=== PATIENT | female | born 1965 | race American Indian/Alaskan Native ===

== ENCOUNTER 2017-12-03 12:07 | Emergency (ER) | payer OTHER ==
[2017-12-03] MEDS ORDERED: MOTRIN PO ONE (12:37)
[2017-12-03] MEDS ORDERED: CATAPRES PO ONE (12:37)
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
--- NOTE | 2017-12-03 14:05 | XRay Report ---
LEFT FEMUR: HISTORY: pain AP and lateral views of the femur demonstrate normal mineralization and contours for this patient's age. No destructive changes are noted and the adjacent soft tissues are normal. IMPRESSION: Normal left femur.
[2017-12-03 14:38] VITALS: BP 169/96
--- NOTE | 2017-12-03 15:17 | Cat Scan Report ---
FINAL REPORT EXAM: CT HEAD/BRAIN WO CON HISTORY: headache COMPARISON: None. TECHNIQUE: Multiple contiguous axial images were obtained from the skullbase the vertex without administration of IV contrast. FINDINGS: Brain volume is normal for age. No hemorrhage, mass, mass effect, or midline shift. Ventricles are not enlarged. Normal basal cisterns. No pathologic extra-axial fluid collection. No evidence of acute infarct. No skull fracture. Paranasal sinuses and mastoid air cells are clear. Bilateral orbits are grossly intact. IMPRESSION: No acute intracranial abnormality.
--- NOTE | 2017-12-03 15:23 | Cat Scan Report ---
FINAL REPORT EXAM: CT CERVICAL SPINE WO CON HISTORY: headache COMPARISON: None. TECHNIQUE: Multiple contiguous axial images were obtained through the cervical spine without administration of IV contrast. Reformatted sagittal and coronal images were available for review. FINDINGS: There is normal alignment without acute fracture or dislocation. The vertebral body heights are maintained. There is no subluxation. The paravertebral soft tissues are normal. The airway is patent. The lung apices are clear. C2-C3: Mild intervertebral disc space narrowing and mild facet arthropathy. Uncovertebral osteophyte formation. No central or foraminal stenosis. C3-C4: Mild intervertebral disc space narrowing and mild facet arthropathy. Uncovertebral osteophyte formation. No central or foraminal stenosis. C4-C5: Mild intervertebral disc space narrowing and mild facet arthropathy. Uncovertebral osteophyte formation. No central or foraminal stenosis. C5-C6: Mild intervertebral disc space narrowing and mild facet arthropathy. Anterior and uncovertebral osteophyte formation. No central or foraminal stenosis. C6-C7: Intervertebral disc space narrowing with uncovertebral and anterior osteophyte formation. Mild facet arthropathy. No central or foraminal stenosis. IMPRESSION: Degenerative changes of the cervical spine without acute fracture or dislocation.
== END 2017-12-03 16:06 | disposition home or self-care (01) ==
LOC: ED 12:07
DX: S13.4XXA Sprain of ligaments of cervical spine, initial encounter (principal); S76.912A Strain of unspecified muscles, fascia and tendons at thigh level, left thigh, initial encounter; I10 Essential (primary) hypertension; E11.9 Type 2 diabetes mellitus without complications; J45.909 Unspecified asthma, uncomplicated; F17.200 Nicotine dependence, unspecified, uncomplicated; Z98.51 Tubal ligation status; V89.2XXA Person injured in unspecified motor-vehicle accident, traffic, initial encounter; Y93.89 Activity, other specified; Y92.89 Other specified places as the place of occurrence of the external cause; Y99.8 Other external cause status
CPT/HCPCS: 70450; 72125